=== PATIENT | male | born 1995 | race Two or more races ===

== ENCOUNTER 2021-03-02 14:22 | Emergency (ER) | payer OTHER ==
[~2021-03-02] VITALS: Ht 165.1 cm; Wt 86.2 kg
[2021-03-02] MEDS ORDERED: COZAAR25 MG PO (14:27)
[2021-03-02] MEDS ORDERED: NORFLEX100MG PO (18:14)
[2021-03-02] MEDS ORDERED: MEDROLPACK PO (18:14)
== END 2021-03-02 19:57 | disposition home or self-care (01) ==
LOC: ER 14:22 → EDSEX 14:53 → ER 19:57
DX: M62.830 Muscle spasm of back (principal); M54.5 Low back pain